=== PATIENT | male | born 1955 | race Caucasian/White ===

== ENCOUNTER → 2017-11-20 | Outpatient (CLI) | payer MEDICARE, OTHER ==
[~2017-11-20] MED LIST: AMBIEN 10 MG TA10 MG PO; ARIPIPRAZOLE15 MG PO; ATIVAN0.5 MG PO; BUPROPION HCL150 M1 PO; CLONAZEPAM 1 MG1 M1 PO; DEPAKOTE ER500 M1 PO; DESYREL50 MG PO; EXCEDRIN CAPLE1 EACH PO; EXCEDRIN MIGRA1 EAC1; FENTANYL PA50 MCG/HR TP; LANSOPRAZOLE30 MG PO; NEXIUM40 MG PO; OXYCODONE HCL15 MG PO; PAROXETINE HCL20 MG PO; PAXIL40 MG PO; PERCOCET 10-321 EACH PO; PERCOCET 7.5-31 EACH; PRILOSEC 20 MG20 MG; PRILOSEC 20 MG20 MG PO; SEROQUEL 50 MG50 M1 PO; SEROQUEL XR200 MG PO; TRAZODONE HCL100 MG PO; VISTARIL 25 MG25 M1 PO; ZOCOR40 MG PO; ZYPREXA20 MG PO
== END ==
LOC: M.RAD 10-30 09:25
DX: I51.7 Cardiomegaly (principal); J98.11 Atelectasis; N40.1 Benign prostatic hyperplasia with lower urinary tract symptoms; N13.8 Other obstructive and reflux uropathy; E78.5 Hyperlipidemia, unspecified

== ENCOUNTER → 2018-03-21 | Outpatient (CLI) | payer MEDICARE, OTHER | LOC: M.RAD 12:12 | DX: J98.4 Other disorders of lung (principal) ==

== ENCOUNTER → 2018-04-30 | Outpatient (CLI) | payer MEDICARE, OTHER | LOC: M.RAD 09:13 | DX: J15.8 Pneumonia due to other specified bacteria (principal); G89.29 Other chronic pain ==

== ENCOUNTER 2018-05-12 21:43 | Inpatient (IN) | payer MEDICARE, OTHER ==
[~2018-05-12] VITALS: Ht 195.6 cm; Wt 89.5 kg
[2018-05-12 21:46] VITALS: BP 134/83
[2018-05-12] MEDS ORDERED: ABILIFY10 MG (22:07)
[2018-05-12 22:11] LABS: ABSOLUTE EOSINOPHILS 0.1 thou/uL (0.0-0.7); ABSOLUTE LYMPHOCYTES 1.2 thou/uL (0.8-5.3); ABSOLUTE MONOCYTES 0.5 thou/uL (0.0-1.2); ABSOLUTE NEUTROPHILS 2.7 thou/uL (1.6-8.1); BASOPHILS 0.8 %; EOSINOPHILS 2.1 %; HEMATOCRIT 39.7 % (42.0-52.0); HEMOGLOBIN 13.3 gm/dL (14.0-18.0); LYMPHOCYTES 27.1 %; MCH 30.4 pg (26.0-34.0); MCHC 33.5 g/dL (28.0-37.0); MONOCYTES 10.1 %; MPV 8.4 fl. (7.2-11.1); NUCLEATED RBCS 0 /100WBC; PLATELET COUNT* 202 thou/uL (150-400); POLYS 59.9 %; RBC 4.36 mil/uL (4.50-6.00); RDW-CV 17.9 % (10.5-14.5); WBC 4.6 thou/uL (4.0-11.0)
[2018-05-12 22:18] LABS: ANION GAP 8 mmol/L (7-16); BUN 43 mg/dL (7-18); CALCIUM 9.1 mg/dL (8.5-10.1); CHLORIDE 104 mmol/L (98-107); CO2 27 mmol/L (21-32); CREATININE 1.5 mg/dL (0.6-1.3); GLUCOSE 77 mg/dL (70-99); POTASSIUM 4.5 mmol/L (3.5-5.1); SODIUM 139 mmol/L (136-145)
[2018-05-12 22:19] LABS: INR 1.1; PROTIME 10.9 Seconds (9.20-11.50)
[2018-05-12 22:29] LABS: ALKALINE PHOSPHATASE 63 U/L (46-116); LIPASE 69 U/L (73-393); NT-PRO BRAIN NAT PEPTIDE 112 pg/mL (<300); SGOT 23 U/L (15-37); SGPT 19 U/L (30-65); TOTAL BILIRUBIN 0.5 mg/dL (<0.1-1.0); TOTAL PROTEIN 7.1 g/dL (6.4-8.2); TROPONIN-I LEVEL <0.06 ng/mL (<0.06)
[2018-05-13 01:48] VITALS: BP 130/80
[2018-05-13 02:00] VITALS: BP 118/58
[2018-05-13] MEDS ORDERED: BENZTROPINE MES1 MG PO (03:42)
--- NOTE | 2018-05-13 05:26 | NUR ---
RECEIVED REPORT FROM ED RN KELLEN AT 0119. PT ARRIVED TO UNIT AT 0135 VIA CART. PT'S SPOUSE AT BEDSIDE. LEISURE STUDIES PROFESSOR IN PLACE, TRACING SINUS RHYTHM. VSS, PT CONFUSED, RESTLESS UPON ARRIVAL TO UNIT. ADMISSION ASESSMENT COMPLETED. HIGH FALL PRECAUTIONS IN PLACE, Q2H REPOSITIONING PROVIDED. IV FLUIDS INFUSING. CALL LIGHT WITHIN REACH.
[2018-05-13 08:00] VITALS: BP 111/80
--- NOTE | 2018-05-13 08:00 | NUR ---
AT 0720, PT ATTEMPTED TO CLIMB OUT OF BED, PT CONFUSED, APPEARS TO BE HAVING VISUAL HALLUCINATIONS (MUMBLES AND ATTEMPTS TO GRAB THINGS THAT ARE NOT THERE). BECAME AGGITATED WITH STAFF. IV ATIVAN ADMINISTERED AT 0620. DR. SPICER NOTIFIED FOR PT BEING AGGITATED AND RESTLESS, ATTEMPTING TO GET OUT OF BED AT 0655 EVEN AFTER IV ATIVAN. NEW ORDERS RECEIVED FOR IV HALDOL X1 DOSE. PT PROVIDED WITH 1:1 SITTER AT 0750 FOR PATIENT SAFETY.
[2018-05-13 08:07] LABS: URINE BILIRUBIN NEGATIVE (Negative); URINE BLOOD NEGATIVE (Negative); URINE CLARITY CLEAR; URINE COLOR YELLOW; URINE GLUCOSE-RANDOM NEGATIVE (Negative); URINE KETONES 1+ (Negative); URINE LEUKOCYTES-REFLEX NEGATIVE (Negative); URINE NITRITE-REFLEX NEGATIVE (Negative); URINE PROTEIN NEGATIVE (Negative); URINE SPECIFIC GRAVITY 1.025 (1.005-1.030); URINE UROBILINOGEN 0.2 E.U./dl (0.2-1.0)
--- NOTE | 2018-05-13 10:16 | EKG ---
[place] [address] ELECTROCARDIOGRAM REPORT Name: SABINO CASAS Room: [address] ADM IN M.R.#: [id number] Admission: 05/13/18 Attend Phys: Santos Marie MD Discharge: Date of : 51 Report #: [id number] THIS REPORT FOR: //name// [facility] ED Test Date: 2018-05-12 Test Time: 22:11:02 Pat Name: SABINO CASAS Department: Room: [facility] Gender: M Confectionery Cooker: GL : 1955 Requested By: Peace Riley Order Number: [id number] MD: Dewey Barbour Measurements Intervals [place] Rate: 83 P: 6 IN: 151 QRS: 54 QRSD: 107 T: 45 QT: 357 QTc: 420 Interpretive Statements Sinus rhythm Abnormal R-wave progression, early transition Compared to ECG 03/06/2016 19:43:35 No significant changes Electronically Signed On 05-13-2018 10:16:41 FUEL HOUSE ATTENDANT by Dewey Barbour [email or web address] <ELECTRONICALLY SIGNED> By: Dewey Barbour MD, FAC 05/13/18 1016 2211 221 Dewey Barbour MD, [facility] /EPI
[2018-05-13 10:43] LABS: CALCIUM 8.2 mg/dL (8.5-10.1); CREATININE 1.1 mg/dL (0.6-1.3); POTASSIUM 4.6 mmol/L (3.5-5.1)
[2018-05-13 12:15] VITALS: BP 118/81
--- NOTE | 2018-05-13 15:18 | NUR ---
INITIAL ASSESSMENT: CM SPK W/PT SPOUSE VIA TELEPHONE CM WAS UNABLE TO ASSESS PT D/T COGNITION. PT PRESENT W/CONFUSION AND AGITATION. PT HAS 1:1 SITTER FOR SAFETY CONCERNS. PER SPOUSE, [place], PT IS NORMALLY INDEPENDENT W/ADLs & DRIVES; HOWEVER PT IS FALL RISK SO SPOUSE HAS "HIDDEN" PT'S "KEYS." PT HAS NO HX SNF, BUT USED HH SEVERAL Y/A D/T SHOULDER INJURY. SPOUSE DOESNT REMEMBER WHICH HH WAS USED. SPOUSE IS REQUESTING A WALKER D/T TO INCREASE FALLS. CM TO CONT TO FOLLOW PT AND PROVIDE SUPPORT PRN.
[2018-05-14] VITALS: BP 138/81
[2018-05-14 04:00] VITALS: BP 135/86
--- NOTE | 2018-05-14 05:05 | NUR ---
ASSUMED PT CARE AT 1930. PT MED SURG STATUS. 1:1 SITTER PROVIDED THIS SHIFT. PT CONTINUES TO BE VERY IMPULSIVE AND RESTLESS. AGGITATED AT TIMES. PRN HALDOL AND IV ATIVAN ADMINISTERED THIS SHIFT, SEE EMAR FOR DOCUMENTATION. PT UNABLE TO FOLLOW SIMPLE COMMANDS. NPO AT THIS TIME FOR FAILED BEDSIDE SWALLOW. PT CONTINUES TO EXHIBIT VISUAL HALLUCINATIONS THIS SHIFT AEB PT HOLDING ARMS UP IN THE AIR AND ATTEMPTING TO GRAB AT THINGS THAT ARE NOT THRERE.
[2018-05-14 05:22] LABS: ABSOLUTE LYMPHOCYTES 0.6 thou/uL (0.8-5.3); ABSOLUTE MONOCYTES 0.6 thou/uL (0.0-1.2); ABSOLUTE NEUTROPHILS 4.3 thou/uL (1.6-8.1); BASOPHILS 0.3 %; EOSINOPHILS 0.2 %; HEMATOCRIT 38.8 % (42.0-52.0); HEMOGLOBIN 13.2 gm/dL (14.0-18.0); LYMPHOCYTES 10.6 %; MCH 30.7 pg (26.0-34.0); MCHC 33.9 g/dL (28.0-37.0); MCV 90.6 fL (80.0-100.0); MONOCYTES 11.5 %; MPV 8.3 fl. (7.2-11.1); NUCLEATED RBCS 0 /100WBC; PLATELET COUNT* 190 thou/uL (150-400); POLYS 77.4 %; RBC 4.28 mil/uL (4.50-6.00); RDW-CV 17.4 % (10.5-14.5); WBC 5.6 thou/uL (4.0-11.0)
[2018-05-14 05:38] LABS: CALCIUM 8.8 mg/dL (8.5-10.1); CREATININE 0.9 mg/dL (0.6-1.3); POTASSIUM 4.2 mmol/L (3.5-5.1)
[2018-05-14 07:30] VITALS: BP 88/50
--- NOTE | 2018-05-14 10:52 | NUR ---
VSS. ASSUMED CARE IN THE AM, ASSESSMENT PERFORMED AND CHARTED, FALL PRECAUTIONS IN PLACE AND CALL LIGHT IN REACH, PT IS CONFUSED AND IMPULSIVE, PT HAS SITTER AT BEDSIDE, ON RA, MED-SURG STATUS, AT THIS TIME HE IS IN BED AND AND SLEEPING, PT IS BEING MOVED TO [facility] AND I HAVE CALLED REPORT, PROVITED CALL BACK NUMBER AND NAME, WILL FOLLOW WITH PLAN OF CARE AND HOURLY ROUNDS.
--- NOTE | 2018-05-14 11:50 | NUR ---
ANTONIO spoke with , per , Pt will need mel psych. ANTONIO spoke with Nirali, alva at [facility] mel psych, they have bed availability. Faxed referral. ANTONIO spoke with Pt's , she is in agreement with transfer for mel psych if it is necessary. Updated Dr. Pt moved to room 304, updated dc kit planner on 3W of potential disposition.
[2018-05-14] MEDS ORDERED: WELLBUTRIN SR100 MG PO (12:05)
[2018-05-14] MEDS ORDERED: ARIPIPRAZOLE15 MG PO (12:06)
[2018-05-14 12:51] VITALS: BP 88/50
--- NOTE | 2018-05-14 14:18 | NUR ---
PIG CASTING MACHINE OPERATOR RECIEVED A RETURN CALL FROM [facility] WITH [facility] AND SHE INFORMS THAT THE FACILITY IS ABLE TO ACCEPT THE PATIENT TO THE INPATIENT PSYCH UNIT. D/C PRODUCT LISTER SPOKE TO THE PATIENT AND SPOUSE TO INFORM OF [facility] ACCEPTANCE AND TIME OF TRANSPORT. D/C PRODUCT LISTER SPOKE TO [facility] TO ARRANGE TRANSPORT FOR 1400 AND FAXED THE PATIENT TRANSFER FORM. D/C PRODUCT LISTER INFORMED THE RN IN-CHARGE OF THE PATIENT OF THE PATIENT'S TIME OF TRANSPORT AND WHERE TO CALL REPORT. RN IN AGREEMENT. CM WILL REMAIN AVAILABLE TO ASSIST AND FOLLOW NEEDED.
--- NOTE | 2018-05-14 14:57 | NUR ---
VSS-AFEBRILE. LUNGS CLEAR-ROOM AIR. VIDEO CONSULT WITH PSYCH COMPLETED. SPEECH CONSULT TO BE DONE AT [facility]. 5MG ZYPREXA GIVEN IM BEFORE TRANSFER ORDERED. REPORT CALLED TO KENA RN-PATIENT LEFT VIA EMS, APTIENTS SPOUSE NOTIFIED.
== END 2018-05-14 14:57 | DRG 885 ==
LOC: M.ERS 21:43 → M.TBA-ER 05-13 00:47 → M.2W 05-13 00:47 → M.3W 05-14 11:28
PROVIDERS: Emergency Medicine; Family Medicine; ADMIT Internal Medicine
DX: F29 Unspecified psychosis not due to a substance or known physiological condition (principal); N17.0 Acute kidney failure with tubular necrosis; F20.9 Schizophrenia, unspecified; F31.9 Bipolar disorder, unspecified; Z96.611 Presence of right artificial shoulder joint; E86.0 Dehydration; R41.0 Disorientation, unspecified; R62.7 Adult failure to thrive; F17.210 Nicotine dependence, cigarettes, uncomplicated; Z96.651 Presence of right artificial knee joint; N18.2 Chronic kidney disease, stage 2 (mild); G62.9 Polyneuropathy, unspecified; G89.29 Other chronic pain; M54.9 Dorsalgia, unspecified; Z79.899 Other long term (current) drug therapy; Z88.8 Allergy status to other drugs, medicaments and biological substances; Z82.49 Family history of ischemic heart disease and other diseases of the circulatory system

== ENCOUNTER 2018-09-11 09:03 | Emergency (ER) | payer MEDICARE, OTHER ==
[~2018-09-11] VITALS: Ht 195.6 cm; Wt 86.2 kg
[~2018-09-11 09:03] MED LIST changes: +ABILIFY10 MG; +BENZTROPINE MES1 MG PO; +WELLBUTRIN SR100 MG PO
[2018-09-11 10:51] VITALS: BP 150/80
== END 2018-09-11 10:52 | disposition home or self-care (01) ==
LOC: M.ERS 09:03
DX: R51 Headache (principal); G89.29 Other chronic pain; M54.9 Dorsalgia, unspecified; G62.9 Polyneuropathy, unspecified; F31.9 Bipolar disorder, unspecified; F20.9 Schizophrenia, unspecified; F17.210 Nicotine dependence, cigarettes, uncomplicated; Z96.651 Presence of right artificial knee joint; Z88.8 Allergy status to other drugs, medicaments and biological substances

== ENCOUNTER 2018-09-21 15:55 | Emergency (ER) | payer MEDICARE, OTHER ==
[~2018-09-21] VITALS: Ht 195.6 cm; Wt 86.2 kg
[2018-09-21 16:40] LABS: ABSOLUTE BASOPHILS 0.1 thou/uL (0.0-0.2); ABSOLUTE EOSINOPHILS 0.2 thou/uL (0.0-0.7); ABSOLUTE LYMPHOCYTES 2.4 thou/uL (0.8-5.3); ABSOLUTE MONOCYTES 0.5 thou/uL (0.0-1.2); ABSOLUTE NEUTROPHILS 2.7 thou/uL (1.6-8.1); EOSINOPHILS 3.4 %; HEMATOCRIT 41.2 % (42.0-52.0); HEMOGLOBIN 13.6 gm/dL (14.0-18.0); LYMPHOCYTES 40.5 %; MCHC 33.1 g/dL (28.0-37.0); MCV 87.6 fL (80.0-100.0); MONOCYTES 7.9 %; MPV 7.6 fl. (7.2-11.1); NUCLEATED RBCS 0 /100WBC; PLATELET COUNT* 364 thou/uL (150-400); POLYS 46.2 %; RBC 4.71 mil/uL (4.50-6.00); RDW-CV 16.2 % (10.5-14.5); WBC 5.8 thou/uL (4.0-11.0)
[2018-09-21 16:55] LABS: CALCIUM 9.1 mg/dL (8.5-10.1); CREATININE 1.1 mg/dL (0.6-1.3); POTASSIUM 4.6 mmol/L (3.5-5.1)
[2018-09-21 17:00] LABS: ALBUMIN 4.2 g/dL (3.4-5.0); TOTAL BILIRUBIN 0.3 mg/dL (<0.1-1.0)
[2018-09-21 18:45] LABS: SALICYLATE 53.2 mg/dL (2.8-20.0)
[2018-09-21 19:15] VITALS: BP 142/87
== END 2018-09-21 19:16 | disposition left against medical advice (07) ==
LOC: M.ERS 15:55
PROVIDERS: Personal Emergency Response Attendant; Physician Assistant
DX: T39.011A Poisoning by aspirin, accidental (unintentional), initial encounter (principal); R51 Headache; F17.210 Nicotine dependence, cigarettes, uncomplicated; Z88.8 Allergy status to other drugs, medicaments and biological substances; G89.29 Other chronic pain; M54.9 Dorsalgia, unspecified; G62.9 Polyneuropathy, unspecified; Z96.651 Presence of right artificial knee joint; Y92.89 Other specified places as the place of occurrence of the external cause

== ENCOUNTER 2018-10-11 16:36 | Emergency (ER) | payer MEDICARE, OTHER ==
[~2018-10-11] VITALS: Ht 195.6 cm; Wt 86.2 kg
[~2018-10-11 16:36] MED LIST changes: +NEURONTIN 300300 M1 PO; +OMEPRAZOLE20 M3 PO
[2018-10-11 17:15] LABS: ABSOLUTE BASOPHILS 0.1 thou/uL (0.0-0.2); ABSOLUTE EOSINOPHILS 0.1 thou/uL (0.0-0.7); ABSOLUTE LYMPHOCYTES 1.8 thou/uL (0.8-5.3); ABSOLUTE MONOCYTES 0.7 thou/uL (0.0-1.2); ABSOLUTE NEUTROPHILS 5.7 thou/uL (1.6-8.1); BASOPHILS 0.9 %; EOSINOPHILS 1.3 %; HEMATOCRIT 38.1 % (42.0-52.0); HEMOGLOBIN 12.6 gm/dL (14.0-18.0); LYMPHOCYTES 21.5 %; MCH 28.3 pg (26.0-34.0); MCHC 33.1 g/dL (28.0-37.0); MCV 85.7 fL (80.0-100.0); MONOCYTES 8.6 %; MPV 7.9 fl. (7.2-11.1); NUCLEATED RBCS 0 /100WBC; PLATELET COUNT* 370 thou/uL (150-400); POLYS 67.7 %; RBC 4.44 mil/uL (4.50-6.00); RDW-CV 16.1 % (10.5-14.5); WBC 8.4 thou/uL (4.0-11.0)
[2018-10-11 17:20] LABS: CALCIUM 9.2 mg/dL (8.5-10.1); CREATININE 1.2 mg/dL (0.6-1.3); POTASSIUM 4.5 mmol/L (3.5-5.1)
[2018-10-11 17:24] LABS: ALBUMIN 3.7 g/dL (3.4-5.0); TOTAL BILIRUBIN 0.3 mg/dL (<0.1-1.0); TOTAL PROTEIN 7.2 g/dL (6.4-8.2)
[2018-10-11 17:46] LABS: SALICYLATE 29.5 mg/dL (2.8-20.0)
[2018-10-11 18:20] LABS: ESR (SEDRATE) 18 mm/hr (0-20)
[2018-10-11 20:46] VITALS: BP 151/86
== END 2018-10-11 20:50 | disposition home or self-care (01) ==
LOC: M.ERS 16:36
PROVIDERS: Physician Assistant
DX: T39.011A Poisoning by aspirin, accidental (unintentional), initial encounter (principal); G43.909 Migraine, unspecified, not intractable, without status migrainosus; G89.29 Other chronic pain; M54.2 Cervicalgia; G62.9 Polyneuropathy, unspecified; F17.210 Nicotine dependence, cigarettes, uncomplicated; Z96.651 Presence of right artificial knee joint; Z88.8 Allergy status to other drugs, medicaments and biological substances; Y92.89 Other specified places as the place of occurrence of the external cause

== ENCOUNTER 2018-12-02 17:39 | Emergency (ER) | payer MEDICARE, OTHER ==
[~2018-12-02] VITALS: Ht 195.6 cm; Wt 86.2 kg
[2018-12-02 19:30] VITALS: BP 120/87
== END 2018-12-02 19:30 | disposition home or self-care (01) ==
LOC: M.ERS 17:39
DX: G43.909 Migraine, unspecified, not intractable, without status migrainosus (principal); G89.29 Other chronic pain; M54.9 Dorsalgia, unspecified; G62.9 Polyneuropathy, unspecified; F17.210 Nicotine dependence, cigarettes, uncomplicated; Z96.651 Presence of right artificial knee joint; Z98.890 Other specified postprocedural states; Z91.018 Allergy to other foods

== ENCOUNTER 2018-12-30 18:29 | Emergency (ER) | payer MEDICARE, OTHER ==
[~2018-12-30] VITALS: Ht 195.6 cm; Wt 86.2 kg
[2018-12-30 19:19] VITALS: BP 163/94
== END 2018-12-30 19:23 | disposition left against medical advice (07) ==
LOC: M.ERS 18:29
DX: G43.909 Migraine, unspecified, not intractable, without status migrainosus (principal); G89.29 Other chronic pain; M54.9 Dorsalgia, unspecified; G62.9 Polyneuropathy, unspecified; F17.210 Nicotine dependence, cigarettes, uncomplicated; Z96.651 Presence of right artificial knee joint; Z98.890 Other specified postprocedural states; Z88.8 Allergy status to other drugs, medicaments and biological substances

== ENCOUNTER 2019-01-29 15:20 | Emergency (ER) | payer MEDICARE, OTHER ==
[~2019-01-29] VITALS: Ht 195.6 cm; Wt 86.2 kg
[2019-01-29 15:26] VITALS: BP 160/100
== END 2019-01-29 16:36 | disposition left against medical advice (07) ==
LOC: M.ERS 15:20
DX: G43.909 Migraine, unspecified, not intractable, without status migrainosus (principal); G89.29 Other chronic pain; G62.9 Polyneuropathy, unspecified; F17.210 Nicotine dependence, cigarettes, uncomplicated; Z96.651 Presence of right artificial knee joint

== ENCOUNTER 2019-02-27 00:35 | Inpatient (IN) | payer MEDICARE, OTHER ==
[~2019-02-27] VITALS: Ht 195.6 cm; Wt 88.5 kg
[2019-02-27 00:37] VITALS: BP 124/84
[2019-02-27 01:01] LABS: ABSOLUTE BASOPHILS 0.1 thou/uL (0.0-0.2); ABSOLUTE EOSINOPHILS 0.2 thou/uL (0.0-0.7); ABSOLUTE LYMPHOCYTES 1.6 thou/uL (0.8-5.3); ABSOLUTE MONOCYTES 0.8 thou/uL (0.0-1.2); ABSOLUTE NEUTROPHILS 6.7 thou/uL (1.6-8.1); BASOPHILS 1.3 %; EOSINOPHILS 1.7 %; HEMATOCRIT 40.4 % (42.0-52.0); HEMOGLOBIN 13.6 gm/dL (14.0-18.0); LYMPHOCYTES 16.8 %; MCH 27.2 pg (26.0-34.0); MCHC 33.8 g/dL (28.0-37.0); MCV 80.4 fL (80.0-100.0); MONOCYTES 8.3 %; MPV 7.5 fl. (7.2-11.1); NUCLEATED RBCS 0 /100WBC; PLATELET COUNT* 460 thou/uL (150-400); POLYS 71.9 %; RBC 5.02 mil/uL (4.50-6.00); RDW-CV 17.1 % (10.5-14.5); WBC 9.3 thou/uL (4.0-11.0)
[2019-02-27 01:14] LABS: CALCIUM 9.7 mg/dL (8.5-10.1); CREATININE 1.2 mg/dL (0.6-1.3); POTASSIUM 3.8 mmol/L (3.5-5.1)
[2019-02-27 01:18] LABS: ALBUMIN 4.2 g/dL (3.4-5.0); TOTAL BILIRUBIN 0.3 mg/dL (<0.1-1.0); TOTAL PROTEIN 8.3 g/dL (6.4-8.2)
[2019-02-27] MEDS ORDERED: NORVASC 2.5 MG2.5 M1 PO (02:59)
[2019-02-27] MEDS ORDERED: OMEPRAZOLE40 MG PO (03:00)
[2019-02-27] MEDS ORDERED: BENADRYL25 MG PO (03:00)
[2019-02-27 03:07] LABS: BE -4.8 mmol/L (-2 to +3); PCO2 35.1 mmHg (35.0-45.0); PO2 74.1 mmHg (75.0-100.0); pH 7.368 (7.340-7.450)
[2019-02-27 03:39] VITALS: BP 124/79
[2019-02-27 04:00] VITALS: BP 120/68
[2019-02-27 07:35] VITALS: BP 115/73
[2019-02-27 07:40] LABS: ABSOLUTE BASOPHILS 0.1 thou/uL (0.0-0.2); ABSOLUTE LYMPHOCYTES 0.6 thou/uL (0.8-5.3); ABSOLUTE MONOCYTES 0.9 thou/uL (0.0-1.2); ABSOLUTE NEUTROPHILS 8.6 thou/uL (1.6-8.1); BASOPHILS 0.9 %; EOSINOPHILS 0.4 %; HEMATOCRIT 40.4 % (42.0-52.0); HEMOGLOBIN 13.2 gm/dL (14.0-18.0); LYMPHOCYTES 6.2 %; MCH 26.8 pg (26.0-34.0); MCHC 32.7 g/dL (28.0-37.0); MCV 81.9 fL (80.0-100.0); MONOCYTES 8.7 %; MPV 7.7 fl. (7.2-11.1); NUCLEATED RBCS 0 /100WBC; PLATELET COUNT* 459 thou/uL (150-400); POLYS 83.8 %; RBC 4.94 mil/uL (4.50-6.00); RDW-CV 17.5 % (10.5-14.5); WBC 10.3 thou/uL (4.0-11.0)
[2019-02-27 07:49] LABS: CALCIUM 9.6 mg/dL (8.5-10.1); CREATININE 1.5 mg/dL (0.6-1.3); POTASSIUM 3.8 mmol/L (3.5-5.1)
--- NOTE | 2019-02-27 13:56 | EKG ---
[place] [address] ELECTROCARDIOGRAM REPORT Name: SABINO CASAS Room: [address] ADM IN M.R.#: [id number] Admission: 02/27/19 Attend Phys: Art Skinner MD Discharge: Date of : 51 Report #: [id number] THIS REPORT FOR: //name// [facility] ED Test Date: 2019-02-27 Test Time: 00:51:12 Pat Name: SABINO CASAS Department: Room: [facility] Gender: M Machine Pie Maker: : 1955 Requested By: Briana Gonzales Order Number: [id number] MD: Lisandro Baker Measurements Intervals [place] Rate: 103 P: 9 VA: 130 QRS: 51 QRSD: 100 T: 83 QT: 322 QTc: 422 Interpretive Statements Sinus tachycardia Abnormal R-wave progression, early transition Compared to ECG 05/12/2018 22:11:02 Early repolarization now present heart rate has increased Electronically Signed On 02-27-2019 13:56:46 SURVIVAL SPECIALIST by Lisandro Baker [email or web address] <ELECTRONICALLY SIGNED> By: Lisandro Baker MD, FAC 02/27/19 1356 0051 0051 Lisandro Baker MD, [facility] /EPI
[2019-02-27 20:15] VITALS: BP 136/96
[2019-02-28 08:00] VITALS: BP 129/91
[2019-02-28 10:51] LABS: ABSOLUTE LYMPHOCYTES 0.5 thou/uL (0.8-5.3); ABSOLUTE MONOCYTES 0.7 thou/uL (0.0-1.2); BASOPHILS 0.7 %; EOSINOPHILS 0.2 %; HEMATOCRIT 38.2 % (42.0-52.0); HEMOGLOBIN 12.6 gm/dL (14.0-18.0); LYMPHOCYTES 8.2 %; MCH 26.7 pg (26.0-34.0); MCV 80.8 fL (80.0-100.0); MONOCYTES 11.7 %; MPV 7.4 fl. (7.2-11.1); NUCLEATED RBCS 0 /100WBC; PLATELET COUNT* 454 thou/uL (150-400); POLYS 79.2 %; RBC 4.73 mil/uL (4.50-6.00); RDW-CV 16.9 % (10.5-14.5); WBC 6.4 thou/uL (4.0-11.0)
[2019-02-28 11:00] LABS: CALCIUM 9.7 mg/dL (8.5-10.1); CREATININE 1.2 mg/dL (0.6-1.3); MAGNESIUM 1.9 mg/dL (1.8-2.4); POTASSIUM 3.9 mmol/L (3.5-5.1)
[2019-02-28 19:50] VITALS: BP 145/83
[2019-03-01 05:32] LABS: ABSOLUTE LYMPHOCYTES 0.6 thou/uL (0.8-5.3); ABSOLUTE MONOCYTES 1.2 thou/uL (0.0-1.2); ABSOLUTE NEUTROPHILS 5.8 thou/uL (1.6-8.1); BASOPHILS 0.1 %; HEMATOCRIT 37.8 % (42.0-52.0); HEMOGLOBIN 12.3 gm/dL (14.0-18.0); LYMPHOCYTES 8.1 %; MCH 26.4 pg (26.0-34.0); MCHC 32.5 g/dL (28.0-37.0); MCV 81.3 fL (80.0-100.0); MONOCYTES 15.5 %; MPV 7.7 fl. (7.2-11.1); NUCLEATED RBCS 0 /100WBC; PLATELET COUNT* 443 thou/uL (150-400); POLYS 76.3 %; RBC 4.65 mil/uL (4.50-6.00); RDW-CV 17.6 % (10.5-14.5); WBC 7.6 thou/uL (4.0-11.0)
[2019-03-01 06:08] LABS: CALCIUM 9.1 mg/dL (8.5-10.1); MAGNESIUM 2.1 mg/dL (1.8-2.4); POTASSIUM 3.7 mmol/L (3.5-5.1)
[2019-03-01 06:34] LABS: CALCIUM 9.1 mg/dL (8.5-10.1); PHOSPHORUS* 4.3 mg/dL (2.5-4.9); POTASSIUM 3.7 mmol/L (3.5-5.1)
[2019-03-01 09:33] VITALS: BP 114/68
[2019-03-01 16:27] VITALS: BP 142/82
[2019-03-01 19:30] VITALS: BP 125/68
[2019-03-02 04:18] LABS: HEMATOCRIT 37.1 % (42.0-52.0); HEMOGLOBIN 12.2 gm/dL (14.0-18.0); MCH 26.7 pg (26.0-34.0); MCHC 32.7 g/dL (28.0-37.0); MCV 81.4 fL (80.0-100.0); MPV 7.5 fl. (7.2-11.1); RBC 4.56 mil/uL (4.50-6.00); RDW-CV 17.6 % (10.5-14.5)
[2019-03-02 05:04] LABS: ALBUMIN 3.4 g/dL (3.4-5.0); CALCIUM 8.5 mg/dL (8.5-10.1); CREATININE 0.8 mg/dL (0.6-1.3); MAGNESIUM 2.2 mg/dL (1.8-2.4); POTASSIUM 3.7 mmol/L (3.5-5.1); TOTAL BILIRUBIN 0.3 mg/dL (<0.1-1.0); TOTAL PROTEIN 6.4 g/dL (6.4-8.2)
[2019-03-02 08:07] VITALS: BP 112/93
[2019-03-02 16:00] VITALS: BP 126/82
[2019-03-02 19:47] VITALS: BP 114/70
[2019-03-03 06:06] LABS: HEMATOCRIT 33.7 % (42.0-52.0); MCH 26.7 pg (26.0-34.0); MCHC 32.7 g/dL (28.0-37.0); MCV 81.5 fL (80.0-100.0); MPV 7.4 fl. (7.2-11.1); RBC 4.14 mil/uL (4.50-6.00); RDW-CV 17.6 % (10.5-14.5); WBC 5.5 thou/uL (4.0-11.0)
[2019-03-03 06:16] LABS: POTASSIUM 3.9 mmol/L (3.5-5.1)
[2019-03-03 06:20] LABS: CALCIUM 7.9 mg/dL (8.5-10.1); CREATININE 0.7 mg/dL (0.6-1.3)
[2019-03-03 12:38] VITALS: BP 130/83
[2019-03-03 12:48] VITALS: BP 130/83
== END 2019-03-03 13:52 | disposition home or self-care (01) | DRG 388 ==
LOC: M.ERS 00:35 → M.TBA-ER 02:39 → M.ERS 02:39 → M.ORTHSURG 03:02 → M.3W 03:02 → M.TBA-ER 03:02 → M.ORTHSURG 03:02 → M.3W 03:43 → M.ORTHSURG 17:14
PROVIDERS: Internal Medicine; Personal Emergency Response Attendant; Surgery; ADMIT Internal Medicine
DX: K56.600 Partial intestinal obstruction, unspecified as to cause (principal); J96.91 Respiratory failure, unspecified with hypoxia; M54.9 Dorsalgia, unspecified; G62.9 Polyneuropathy, unspecified; G43.909 Migraine, unspecified, not intractable, without status migrainosus; Z96.651 Presence of right artificial knee joint; F17.210 Nicotine dependence, cigarettes, uncomplicated; I10 Essential (primary) hypertension; J44.9 Chronic obstructive pulmonary disease, unspecified; Z96.649 Presence of unspecified artificial hip joint; G89.4 Chronic pain syndrome; E78.5 Hyperlipidemia, unspecified; E83.51 Hypocalcemia; Z79.82 Long term (current) use of aspirin; Z79.899 Other long term (current) drug therapy; Z87.11 Personal history of peptic ulcer disease; Z90.49 Acquired absence of other specified parts of digestive tract; Z82.49 Family history of ischemic heart disease and other diseases of the circulatory system; Z76.5 Malingerer [conscious simulation]

== ENCOUNTER 2019-07-08 11:12 | Inpatient (IN) | payer MEDICARE, OTHER ==
[~2019-07-08] VITALS: Ht 195.6 cm; Wt 83.6 kg
[~2019-07-08 11:12] MED LIST changes: +BENADRYL25 MG PO; +NORVASC 2.5 MG2.5 M1 PO; +OMEPRAZOLE40 MG PO
[2019-07-08] MEDS ORDERED: IMITREX100 MG PO (11:19)
[2019-07-08] MEDS ORDERED: PROAIR HFA8.5 GM INH (11:20)
[2019-07-08 11:38] LABS: ABSOLUTE BASOPHILS 0.1 thou/uL (0.0-0.2); ABSOLUTE EOSINOPHILS 0.1 thou/uL (0.0-0.7); ABSOLUTE LYMPHOCYTES 0.9 thou/uL (0.8-5.3); ABSOLUTE MONOCYTES 0.4 thou/uL (0.0-1.2); ABSOLUTE NEUTROPHILS 4.9 thou/uL (1.6-8.1); BASOPHILS 1.4 %; EOSINOPHILS 0.8 %; HEMATOCRIT 38.8 % (42.0-52.0); HEMOGLOBIN 12.5 gm/dL (14.0-18.0); LYMPHOCYTES 14.4 %; MCH 25.7 pg (26.0-34.0); MCHC 32.3 g/dL (28.0-37.0); MCV 79.5 fL (80.0-100.0); MONOCYTES 6.2 %; MPV 7.3 fl. (7.2-11.1); NUCLEATED RBCS 0 /100WBC; PLATELET COUNT* 441 thou/uL (150-400); POLYS 77.2 %; RBC 4.88 mil/uL (4.50-6.00); RDW-CV 18.4 % (10.5-14.5); WBC 6.3 thou/uL (4.0-11.0)
[2019-07-08 11:48] LABS: CALCIUM 8.9 mg/dL (8.5-10.1); CREATININE 0.9 mg/dL (0.6-1.3); POTASSIUM 4.2 mmol/L (3.5-5.1)
[2019-07-08 11:52] LABS: ALBUMIN 3.7 g/dL (3.4-5.0); TOTAL BILIRUBIN 0.3 mg/dL (<0.1-1.0); TOTAL PROTEIN 7.1 g/dL (6.4-8.2)
[2019-07-08 15:11] LABS: URINE BILIRUBIN NEGATIVE (Negative); URINE BLOOD NEGATIVE (Negative); URINE CLARITY CLEAR; URINE COLOR YELLOW; URINE GLUCOSE-RANDOM NEGATIVE (Negative); URINE KETONES NEGATIVE (Negative); URINE LEUKOCYTES-REFLEX NEGATIVE (Negative); URINE NITRITE-REFLEX NEGATIVE (Negative); URINE PROTEIN NEGATIVE (Negative); URINE UROBILINOGEN 0.2 E.U./dl (0.2-1.0)
[2019-07-08 16:42] VITALS: BP 143/85
[2019-07-08 16:55] VITALS: BP 144/83
--- NOTE | 2019-07-08 17:02 | EKG ---
[place] [address] ELECTROCARDIOGRAM REPORT Name: FILIPE CASASORY CAROLYN Room: [place] [address] ADM IN M.R.#: [id number] Admission: 07/08/19 Attend Phys: Freddy Scott Discharge: Date of : 51 Date of Service: 07/08/19 1136 Report #: [id number] THIS REPORT FOR: //name// [facility] ED Test Date: 2019-07-08 Test Time: 11:36:55 Pat Name: SABINO CASAS Department: Room: [facility] Gender: M Lucerne Farmer: : 1955 Requested By: Markus Morgan Order Number: [id number] MD: Vineet Bolivar Measurements Intervals [place] Rate: 74 P: 12 [place]: 138 QRS: 51 QRSD: 118 T: 56 QT: 395 QTc: 439 Interpretive Statements Sinus rhythm Compared to ECG 02/27/2019 00:51:12 Sinus tachycardia no longer present Electronically Signed On 07-08-2019 17:01:22 CDT by Vineet Bolivar [email or web address] <ELECTRONICALLY SIGNED> By: Vineet Bolivar MD, FACC 07/08/19 1701 1136 1136 Vineet Bolivar MD, [facility] /EPI
[2019-07-08 20:00] VITALS: BP 132/82
== END 2019-07-08 21:45 | disposition left against medical advice (07) | DRG 390 ==
LOC: M.ERS 11:12 → M.TBA-ER 12:47 → M.2W 17:04
PROVIDERS: Emergency Medicine Emergency Medical Services; ADMIT Internal Medicine
DX: K56.609 Unspecified intestinal obstruction, unspecified as to partial versus complete obstruction (principal); G62.9 Polyneuropathy, unspecified; M54.9 Dorsalgia, unspecified; G89.29 Other chronic pain; I10 Essential (primary) hypertension; F17.210 Nicotine dependence, cigarettes, uncomplicated; Z96.649 Presence of unspecified artificial hip joint; G43.909 Migraine, unspecified, not intractable, without status migrainosus; Z96.651 Presence of right artificial knee joint; Z79.82 Long term (current) use of aspirin; Z87.11 Personal history of peptic ulcer disease; Z79.899 Other long term (current) drug therapy; Z90.49 Acquired absence of other specified parts of digestive tract

== ENCOUNTER → 2020-05-27 | Outpatient (CLI) | payer MEDICARE, OTHER ==
[~2020-05-27] MED LIST changes: +IMITREX100 MG PO; +PROAIR HFA8.5 GM INH
== END ==
LOC: M.RAD 10:16
PROVIDERS: ATTEND Internal Medicine
DX: J44.9 Chronic obstructive pulmonary disease, unspecified (principal); Z72.0 Tobacco use

== ENCOUNTER 2020-08-19 01:46 | Emergency (ER) | payer MEDICARE, OTHER ==
[~2020-08-19] VITALS: Ht 195.6 cm; Wt 88.5 kg
[2020-08-19 01:47] VITALS: BP 158/84
[2020-08-19] MEDS ORDERED: OMEPRAZOLE 20 M20 M1 PO (01:53)
[2020-08-19] MEDS ORDERED: EXCEDRIN CAPLE1 EACH PO (01:53)
[2020-08-19] MEDS ORDERED: IMITREX 25 MG T25 M1 PO (01:54)
[2020-08-19 02:22] LABS: ABSOLUTE BASOPHILS 0.1 thou/uL (0.0-0.2); ABSOLUTE EOSINOPHILS 0.1 thou/uL (0.0-0.7); ABSOLUTE MONOCYTES 0.4 thou/uL (0.0-1.2); ABSOLUTE NEUTROPHILS 4.6 thou/uL (1.6-8.1); BASOPHILS 1.6 %; EOSINOPHILS 1.4 %; HEMOGLOBIN 10.2 gm/dL (14.0-18.0); LYMPHOCYTES 16.2 %; MCHC 30.8 g/dL (28.0-37.0); MCV 71.4 fL (80.0-100.0); MPV 7.2 fl. (7.2-11.1); NUCLEATED RBCS 0 /100WBC; PLATELET COUNT* 348 thou/uL (150-400); POLYS 73.8 %; RBC 4.62 mil/uL (4.50-6.00); RDW-CV 19.8 % (10.5-14.5); WBC 6.2 thou/uL (4.0-11.0)
[2020-08-19 03:18] LABS: ALBUMIN 3.9 g/dL (3.4-5.0); CALCIUM 8.7 mg/dL (8.5-10.1); CREATININE 1.2 mg/dL (0.6-1.3); POTASSIUM 4.4 mmol/L (3.5-5.1); TOTAL BILIRUBIN 0.2 mg/dL (<0.1-1.0); TOTAL PROTEIN 7.2 g/dL (6.4-8.2)
[2020-08-19 07:48] VITALS: BP 163/88
--- NOTE | 2020-08-19 07:57 | NUR ---
UPON ENTERING THE PATIENT'S ROOM TO ASSESS HIM, HE BEGAN YELLING AT THIS RN, SCREAMING HOW HE HAS BEEN IN THAT ROOM FOR OVER 5 HOURS AND NOTHING HAS BEEN DONE TO HELP HIM. THIS RN EXPLAINED TO THE PATIENT THAT WE ARE WAITING FOR SURGERY TO INFORM US OF WHEN THEY WILL BE TAKING HIM TO SURGERY. THE PATIENT CONTINUED TO YELL AND STATED THAT NOTHING HAS BEEN DONE TO HELP HIM. THIS RN AGAIN EXPLAINED TO THE PATIENT THE PLAN OF CARE AND THAT THE ER PHYSICIAN HAS BEEN MADE AWARE THAT HE NEEDS MORE PAIN MEDICATION. THE PATIENT CONTINUED YELLING, STOOD UP, RIPPED OFF HIS GOWN AND STICKERS AND STATED THAT THIS WAS THE WORST HOSPITAL HE HAS EVER BEEN IN AND HE WAS LEAVING. THIS RN EXPLAINED TO THE PATIENT THAT IF HE CHOOSES TO LEAVE THE ER THEN HE NEEDS TO UNDERSTAND THE RISKS AND BENEFITS OF LEAVING. THE PATIENT PROCEEDED TO RIP OFF STICKERS IT WAS EXPLAINED TO HIM AGAIN THAT IF HE WERE TO LEAVE AGAINST MEDICAL ADVICE IT COULD CAUSE ADDITIONIAL PAIN, SUFFERING AND . THE PATIENT WAS BELLIGERANT AND RIPPED THE CURTAIN TO THE ROOM OPEN WHICH ENDED UP IN HIS RIGHT ARM HITTING THIS RN'S PRECEPTOR. THE PATIENT IMMEDIATELY APOLOGIZED TO THAT NURSE. THIS RN REMOVED THE PATIENT'S IV AND ALLOWED THE PATIENT TO GET DRESSED. THE PATIENT REFUSED TO SIGN AN AMA FORM AND SECURITY ESCORTED THE PATIENT TO THE ADMITTING DESK. DR. WILSON SPOKE WITH THE PATIENT BY THE ADMITTING DESK AND AGAIN EXPLAINED THE RISKS AND BENEFITS OF LEAVING AGAINST MEDICAL ADVICE. SHE TALKED THE PATIENT INTO STAYING FOR HIS SURGERY. THE PATIENT WAS BROUGHT BACK TO HIS ROOM, A GOWN WAS PLACED ON THE PATIENT, ANOTHER IV WAS STARTED IN THE PATIENT'S RIGHT FOREARM, HE WAS CONNECTED TO ALL MONITORS AND HE APOLOGIZED TO THIS RN FOR HIS BEHAVIOR. ATIVAN AND FENTANYL WERE GIVEN TO THE PATIENT AND HE IS RESTING IN HIS BED AND WAITING FOR SURGERY.
--- NOTE | 2020-08-19 16:45 | EKG ---
[place] [address] ELECTROCARDIOGRAM REPORT Name: YESSENIASABINOBEVERLEY LEON Room: [facility]#: [id number] Admission: 08/19/20 Attend Phys: Discharge: 08/19/20 Date of : 51 Date of Service: 08/19/20 0149 Report #: [id number] THIS REPORT FOR: //name// [facility] ED Test Date: 2020-08-19 Test Time: 01:49:11 Pat Name: SABINO CASAS Department: Room: [place] [address] Gender: M Biometrics Head: NM : 1955 Requested By: Peace Riley Order Number: [id number] Ramon MD: Lisandro Baker Measurements Intervals [place] Rate: 71 P: -4 IN: 147 QRS: 35 QRSD: 125 T: 45 QT: 401 QTc: 436 Interpretive Statements Sinus rhythm Consider left atrial enlargement Probable left ventricular hypertrophy Baseline wander in lead(s) V6 No previous ECG available for comparison Electronically Signed On 08-19-2020 16:45:07 CDT by Lisandro Baker [email or web address] <ELECTRONICALLY SIGNED> By: Lisandro Baker MD, [facility] 08/19/20 1645 0149 0149 Lisandro Baker MD, [facility] /EPI
== END 2020-08-19 09:01 | disposition home or self-care (01) ==
LOC: M.ERS 01:46 → M.TBA-ER 05:40 → M.ERS 05:40
PROVIDERS: Emergency Medicine
DX: K56.2 Volvulus (principal); Z20.822 Contact with and (suspected) exposure to COVID-19; R10.84 Generalized abdominal pain; Z79.82 Long term (current) use of aspirin

== ENCOUNTER → 2020-12-02 | Outpatient (CLI) | payer MEDICARE, OTHER ==
[~2020-12-02] MED LIST changes: +IMITREX 25 MG T25 M1 PO; +OMEPRAZOLE 20 M20 M1 PO
== END ==
LOC: M.ULTRA 11-24 15:45
PROVIDERS: ATTEND Internal Medicine
DX: M43.12 Spondylolisthesis, cervical region (principal); I82.411 Acute embolism and thrombosis of right femoral vein; R30.0 Dysuria; R60.0 Localized edema

== ENCOUNTER 2021-01-09 14:22 | Emergency (ER) | payer MEDICARE, OTHER ==
[~2021-01-09] VITALS: Ht 190.5 cm; Wt 86.2 kg
[2021-01-09 15:20] VITALS: BP 134/72
[2021-01-09] MEDS ORDERED: BENTYL 10 MG CA10 M1 PO (18:58)
[2021-01-09] MEDS ORDERED: ZOFRAN ODT4 MG DISSOLVE (18:58)
== END 2021-01-09 15:22 | disposition left against medical advice (07) ==
LOC: M.ERS 14:22
DX: R10.9 Unspecified abdominal pain (principal); R11.10 Vomiting, unspecified; Z53.21 Procedure and treatment not carried out due to patient leaving prior to being seen by health care provider

== ENCOUNTER 2021-01-09 17:04 | Emergency (ER) | payer MEDICARE, OTHER ==
[~2021-01-09] VITALS: Ht 190.5 cm; Wt 93.0 kg
[2021-01-09 17:46] LABS: ABSOLUTE BASOPHILS 0.1 thou/uL (0.0-0.2); ABSOLUTE EOSINOPHILS 0.1 thou/uL (0.0-0.7); ABSOLUTE LYMPHOCYTES 0.9 thou/uL (0.8-5.3); ABSOLUTE MONOCYTES 0.4 thou/uL (0.0-1.2); ABSOLUTE NEUTROPHILS 2.9 thou/uL (1.6-8.1); BASOPHILS 1.8 %; EOSINOPHILS 2.4 %; HEMATOCRIT 32.4 % (42.0-52.0); MCH 21.9 pg (26.0-34.0); MCV 70.7 fL (80.0-100.0); MPV 7.4 fl. (7.2-11.1); NUCLEATED RBCS 0 /100WBC; PLATELET COUNT* 348 thou/uL (150-400); POLYS 65.8 %; RBC 4.59 mil/uL (4.50-6.00); RDW-CV 18.6 % (10.5-14.5); WBC 4.5 thou/uL (4.0-11.0)
[2021-01-09 18:01] LABS: POTASSIUM 4.2 mmol/L (3.5-5.1)
[2021-01-09 18:05] LABS: ALBUMIN 3.8 g/dL (3.4-5.0); TOTAL BILIRUBIN 0.2 mg/dL (<0.1-1.0)
[2021-01-09 18:49] LABS: OVALOCYTES Occasional
[2021-01-09 18:50] LABS: LARGE PLATELETS RARE
[2021-01-09 18:52] LABS: ANISOCYTOSIS 1+; PLATELET ESTIMATE ADEQUATE
[2021-01-09 18:53] LABS: MICROCYTES 2+; POLYCHROMASIA Occasional
[2021-01-09] MEDS ORDERED: ZOFRAN ODT4 MG DISSOLVE (18:58)
[2021-01-09] MEDS ORDERED: BENTYL 10 MG CA10 M1 PO (18:58)
[2021-01-09 19:18] VITALS: BP 159/82
--- NOTE | 2021-01-10 12:18 | EKG ---
[place] [address] ELECTROCARDIOGRAM REPORT Name: YESSENIASABINO CAROLYN Room: [facility]#: [id number] Admission: 01/09/21 Attend Phys: Discharge: 01/09/21 Date of : 51 Date of Service: 01/09/21 1726 Report #: [id number] THIS REPORT FOR: //name// [facility] ED Test Date: 2021-01-09 Test Time: 17:26:26 Pat Name: SABINO CASAS Department: Room: Gender: Manager Digital: [facility] : 1955 Requested By: Markus Morgan Order Number: [id number] MD: Lisandro Baker Measurements Intervals [place] Rate: 75 P: -15 PA: 134 QRS: 50 QRSD: 118 T: 55 QT: 372 QTc: 416 Interpretive Statements Sinus rhythm Nonspecific intraventricular conduction delay Compared to ECG 08/19/2020 01:49:11 Intraventricular conduction delay now present Electronically Signed On 01-10-2021 12:17:54 CDT by Lisandro Baker [email or web address] <ELECTRONICALLY SIGNED> By: Lisandro Baker MD, [facility] 01/10/21 1217 1726 1726 Lisandro Baker MD, [facility] /EPI
== END 2021-01-09 19:18 | disposition home or self-care (01) ==
LOC: M.ERS 17:04
PROVIDERS: Emergency Medicine Emergency Medical Services
DX: R10.32 Left lower quadrant pain (principal); R11.2 Nausea with vomiting, unspecified; Z98.890 Other specified postprocedural states; Z79.899 Other long term (current) drug therapy

== ENCOUNTER 2021-04-15 17:39 | Emergency (ER) | payer MEDICARE, OTHER ==
[~2021-04-15] VITALS: Ht 190.5 cm; Wt 81.7 kg
[~2021-04-15 17:39] MED LIST changes: +BENTYL 10 MG CA10 M1 PO; +ZOFRAN ODT4 MG DISSOLVE
[2021-04-15 18:22] LABS: ABSOLUTE BASOPHILS 0.1 thou/uL (0.0-0.2); ABSOLUTE LYMPHOCYTES 0.9 thou/uL (0.8-5.3); ABSOLUTE MONOCYTES 0.3 thou/uL (0.0-1.2); ABSOLUTE NEUTROPHILS 2.9 thou/uL (1.6-8.1); BASOPHILS 2.4 %; HEMATOCRIT 32.1 % (42.0-52.0); HEMOGLOBIN 9.9 gm/dL (14.0-18.0); LYMPHOCYTES 21.6 %; MCH 21.8 pg (26.0-34.0); MCV 70.4 fL (80.0-100.0); MONOCYTES 6.9 %; MPV 7.2 fl. (7.2-11.1); NUCLEATED RBCS 0 /100WBC; PLATELET COUNT* 500 thou/uL (150-400); POLYS 68.1 %; RBC 4.56 mil/uL (4.50-6.00); RDW-CV 20.2 % (10.5-14.5); WBC 4.2 thou/uL (4.0-11.0)
[2021-04-15 18:30] LABS: CALCIUM 8.5 mg/dL (8.5-10.1); POTASSIUM 3.8 mmol/L (3.5-5.1)
[2021-04-15 18:35] LABS: ALBUMIN 3.5 g/dL (3.4-5.0); TOTAL BILIRUBIN 0.2 mg/dL (<0.1-1.0); TOTAL PROTEIN 6.8 g/dL (6.4-8.2)
[2021-04-15] MEDS ORDERED: PHENERGAN 25 MG25 M1 PO (22:04)
[2021-04-15] MEDS ORDERED: DICYCLOMINE HCL20 MG PO (22:04)
[2021-04-15 22:15] LABS: OVALOCYTES Occasional; PLATELET ESTIMATE INCREASED
[2021-04-15 22:16] LABS: ANISOCYTOSIS 2+; HYPOCHROMASIA 2+
[2021-04-15 22:18] LABS: MICROCYTES 2+; POLYCHROMASIA Occasional
[2021-04-15 22:19] VITALS: BP 158/98
--- NOTE | 2021-04-16 10:08 | EKG ---
[place] [address] ELECTROCARDIOGRAM REPORT Name: SABINO CASAS Room: [facility]#: [id number] Admission: 04/15/21 Attend Phys: Discharge: 04/15/21 Date of : 51 Date of Service: 04/15/211813 Report #: [id number] THIS REPORT FOR: //name// [facility] ED Test Date: 2021-04-15 Test Time: 18:14:47 Pat Name: SABINO CASAS Department: Room: Gender: Alfalfa Dehydrator Operator: VINAY : 1955 Requested By: Venancio Strange Order Number: [id number] MD: Kong Orellana Measurements Intervals [place] Rate: 74 P: -8 MT: 143 QRS: 39 QRSD: 117 T: 56 QT: 386 QTc: 429 Interpretive Statements Sinus rhythm Atrial premature complex Probable left ventricular hypertrophy Compared to ECG 01/09/2021 17:26:26 Atrial premature complex(es) now present Electronically Signed On 04-16-2021 10:08:36 ROBOT DESIGNER by Kong Orellana [email or web address] <ELECTRONICALLY SIGNED> By: Kong Orellana MD, [facility] 04/16/21 1008 1814 1814 Kong Orellana MD, [facility] /EPI
== END 2021-04-15 22:20 | disposition home or self-care (01) ==
LOC: M.ERS 17:39
PROVIDERS: Family Medicine
DX: I71.4 Abdominal aortic aneurysm, without rupture (principal); Z20.822 Contact with and (suspected) exposure to COVID-19; R10.11 Right upper quadrant pain; G43.909 Migraine, unspecified, not intractable, without status migrainosus; K21.9 Gastro-esophageal reflux disease without esophagitis; Z79.899 Other long term (current) drug therapy

== ENCOUNTER 2021-04-27 19:41 | Inpatient (IN) | payer MEDICARE, OTHER ==
[~2021-04-27] VITALS: Ht 190.5 cm; Wt 79.4 kg
--- NOTE | ~2021-04-27 | H ---
[address] [address] HISTORY AND PHYSICAL Name: SABINO CASAS Room: [address] IN .R.#: [id number] Admission: 04/27/21 Attend Phys: Diamond Canales MD Discharge: 04/28/21 Date of : 51 Report #: [id number] THIS REPORT FOR: cc: Brandon Weeks MD, Dean L. MD DANNY,Medical Records Staff ~ Patient was here less than 24 hour please refer to the Emergency Room summation note. By: 0703Medical Records Staff LATHA /DEMETRIS
[~2021-04-27 19:41] MED LIST changes: +DICYCLOMINE HCL20 MG PO; +PHENERGAN 25 MG25 M1 PO
[2021-04-27 19:43] VITALS: BP 141/87
[2021-04-27 20:06] LABS: ABSOLUTE LYMPHOCYTES 0.5 thou/uL (0.8-5.3); ABSOLUTE MONOCYTES 0.3 thou/uL (0.0-1.2); BASOPHILS 0.3 %; HEMATOCRIT 34.9 % (42.0-52.0); HEMOGLOBIN 10.5 gm/dL (14.0-18.0); LYMPHOCYTES 9.7 %; MCH 21.5 pg (26.0-34.0); MCHC 30.2 g/dL (28.0-37.0); MCV 71.3 fL (80.0-100.0); MONOCYTES 5.9 %; MPV 7.8 fl. (7.2-11.1); NUCLEATED RBCS 0 /100WBC; PLATELET COUNT* 234 thou/uL (150-400); POLYS 84.1 %; RDW-CV 19.5 % (10.5-14.5); WBC 4.8 thou/uL (4.0-11.0)
[2021-04-27 20:25] LABS: PROTIME 10.6 Seconds (9.20-11.50)
[2021-04-27 20:32] LABS: CALCIUM 8.5 mg/dL (8.5-10.1); POTASSIUM 4.1 mmol/L (3.5-5.1)
[2021-04-27 20:37] LABS: ALBUMIN 3.8 g/dL (3.4-5.0); MAGNESIUM 2.1 mg/dL (1.8-2.4); TOTAL BILIRUBIN 0.2 mg/dL (<0.1-1.0); TOTAL PROTEIN 7.4 g/dL (6.4-8.2)
[2021-04-28 00:35] VITALS: BP 138/77
--- NOTE | 2021-04-28 00:36 | NUR ---
PT LEFT AMA AT 0029. PT LEFT VERY IRRATE THAT WE DO NOT HAVE AN INPATIENT BED AT THIS TIME AND "THIS ROOM IS A SWEAT BOX". PT WAS GIVEN MULTIPLE DOSES OF IV PAIN MEDICATION AND WAS MADE AWARE HE IS UNABLE TO DRIVE AT THIS TIME. PATIENT STORMED OUT AND STATED HE WAS GOING TO WALK. PT WAS ALERT AND ORIENTED AND WALKING WITH A STEADY GATE.
--- NOTE | 2021-04-28 09:59 | EKG ---
[place] [address] ELECTROCARDIOGRAM REPORT Name: SABINO CASAS Room: [place] [address] DIS IN ..#: [id number] Admission: 04/27/21 Attend Phys: Diamond Canales, Discharge: 04/28/21 Date of : 51 Date of Service: 04/27/211939 Report #: [id number] THIS REPORT FOR: //name// [facility] ED Test Date: 2021-04-27 Test Time: 19:40:30 Pat Name: SABINO CASAS Department: Room: [facility] Gender: M Medication Technician: DEZ : 1955 Requested By: Peace Riley Order Number: [id number] MD: Kong Orellana Measurements Intervals [place] Rate: 80 P: -31 DC: 131 QRS: 43 QRSD: 115 T: 61 QT: 369 QTc: 426 Interpretive Statements Sinus rhythm Nonspecific intraventricular conduction delay Compared to ECG 04/15/2021 18:14:47 Intraventricular conduction delay now present Atrial premature complex(es) no longer present Electronically Signed On 04-28-2021 9:59:37 DECAY CONTROL OPERATOR by Kong Orellana [email or web address] <ELECTRONICALLY SIGNED> By: Kong Orellana MD, FACC 04/28/21 0959 39 39 Kong Orellana MD, FAC /EPI
== END 2021-04-28 00:29 | disposition left against medical advice (07) | DRG 177 ==
LOC: M.ERS 19:41 → M.TBA-ER 21:05
PROVIDERS: Emergency Medicine; ADMIT Internal Medicine; ATTEND Internal Medicine
DX: U07.1 COVID-19 (principal); J12.82 Pneumonia due to coronavirus disease 2019; I71.4 Abdominal aortic aneurysm, without rupture; K21.9 Gastro-esophageal reflux disease without esophagitis; Z53.29 Procedure and treatment not carried out because of patient's decision for other reasons; F17.210 Nicotine dependence, cigarettes, uncomplicated; G43.919 Migraine, unspecified, intractable, without status migrainosus; Z79.899 Other long term (current) drug therapy